=== PATIENT | male | born 2005 ===

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

== ENCOUNTER → 2024-01-20 16:41 | Outpatient (CLI) | payer OTHER, SELFPAY ==
--- NOTE | 2024-01-20 16:42 | DI.MRI.S_ITS ---
PROCEDURE: MR KNEE RT WO CON INDICATIONS: Pain in right knee TECHNIQUE: Noncontrast sagittal PD fast spin echo and T2 fast spin echo with fat saturation, sagittal 3-D FLASH with fat saturation; coronal T1 spin echo and PD fast spin echo with fat saturation, and axial PD fast spin echo with fat saturation through the knee. COMPARISON: [facility], CR, XR KNEE RT 3V, 11/17/2023, 14:03. FINDINGS: Image quality: Excellent. Anterior cruciate ligament: Intermediate intrasubstance signal in the anterior cruciate ligament may be secondary to a remote prior sprain. The bulk of the ligament fibers appear to be in continuity. Posterior cruciate ligament: Intact. Medial collateral ligament: Intact. Lateral collateral ligament: Intact. Medial meniscus: Intact. Lateral meniscus: Intact. Medial and lateral tendons: The semimembranosus tendon insertions appear intact. Visualized portions of the pes anserinus tendons appear normal. The popliteus tendon is intact. Iliotibial band appears normal. Anterior structures: The quadriceps and patellar tendons appear intact. No patellar subluxation. No femoral trochlear dysplasia or ventral trochlear prominence. No edema in the infrapatellar fat pad. Bones and cartilage: No bone marrow contusions or fractures. Medial femorotibial cartilage: Intact. Lateral femorotibial cartilage: Intact. Patellofemoral cartilage: Intact. Soft tissues: There is physiologic knee joint fluid. No medial popliteal cyst. The musculature surrounding the knee is normal in bulk. IMPRESSION: 1. Remote prior low-grade sprain of the anterior cruciate ligament. The bulk of the ligament fibers remain in continuity. Posterior cruciate ligament is intact. 2. No acute trabecular bone injury. Collateral ligaments are intact. No meniscal tear or focal cartilage defect is seen. Approved by: Giuseppe Rick M.D. on 01/21/2024 at 9:52
== END ==
PROVIDERS: Referring Provider Nurse Practitioner Family; Visit Provider Nurse Practitioner Family
DX: Z09 Encounter for follow-up examination after completed treatment for conditions other than malignant neoplasm (principal); S83.511A Sprain of anterior cruciate ligament of right knee, initial encounter; M25.561 Pain in right knee
CPT/HCPCS: 73721